=== PATIENT | female | born 1990 | race Hispanic/Latino ===

== ENCOUNTER 2018-02-06 13:20 | Emergency (ER) | payer OTHER ==
[2018-02-06 13:43] LABS: #Lymphocytes 1.8 thou/uL (1.20-3.40); #Monocytes 0.4 thou/uL (0.11-0.59); #Neutrophils 5.7 thou/uL (1.40-6.50); %Basophils 0.2 % (0.0-1.0); %Eosinophils 0.3 % (0.0-10.0); %Lymphocytes 23.1 % (21.0-51.0); %Monocytes 4.6 % (0.0-10.0); %Neutrophils 71.9 % (42.0-75.0); Hemoglobin 12.8 g/dL (12.0-16.0); Mean Corpuscular HGB CONC 33.4 g/dL (32.0-36.0); Mean Corpuscular Hemoglobin 28.2 pg (27.0-31.0); Mean Corpuscular Volume 84.3 fL (78.0-98.0); Mean Platelet Volume 7.8 fL (7.4-10.4); Platelet Count 188 thou/uL (130-400); RBC Distribution Width 12.3 % (11.5-14.5); Red Blood Cell (RBC) Count 4.56 mill/uL (4.20-5.40); White Blood Cell (WBC) Count 7.9 thou/uL (4.8-10.8)
[2018-02-06 13:48] LABS: BHCG - Serum POSITIVE (NEGATIVE); Pregs Control Background? CLEAR/WHITE (CLR/WHITE); Pregs Control Bar Appear? YES (CONTROL BAR)
[2018-02-06 14:41] LABS: Bilirubin Negative (Negative); Blood, Urine Small (Negative); Clarity CLEAR (Clear); Glucose, Urine (Dipstick) Negative (Negative); Leukocyte Negative (Negative); Nitrite Negative (Negative); Protein, Urine (Dipstick) Negative (Neg-Trace); Specific Gravity, Urine 1.015 (1.002-1.036); Urobilinogen 0.2 mg/dL (0.2-1.0)
[2018-02-06 14:43] LABS: Bacteria/HPF None Seen HPF (None Seen); Hyaline Casts/LPF 0-3 HYALINE CAST LPF (0-3 Hyaline); Pathc Cast-AUWi Flag 0.14 (0-2.49); RBC/HPF 0-3 HPF (0-3); Squamous Epithelial 0-3 HPF (0-3); WBC/HPF 0-3 HPF (0-3)
--- NOTE | 2018-02-06 14:54 | ULT ---
TRANSABDOMINAL PELVIC UTLRASOUND: DATE: 02/06/2018. Provided CLINICAL HISTORY: Vaginal bleeding. FINDINGS: Uterus measures about 10 x 5.3 x 8.1 cm and demonstrates an intrauterine gestational sac containing a yolk sac and pole. heart tones of 130 b.p.m. documented. There is a small amount of pa ragestational hemorrhage present. Estimated gestational age by crown-rump length is 6 weeks 5 days. The right and left ovary demonstrate a normal transabdominal sonographic appearance. There is no nanci dence for free pelvic fluid. Color Doppler and spectral analysis of the ovarian waveforms demonstrat es normal flow bilaterally. IMPRESSION: Single live intrauterine gestation 6 weeks 5 days by crown-rump length. A small amount of paragestat ional hemorrhage. POS: MISSY
== END 2018-02-06 15:23 ==
LOC: ERS 13:20
DX: O20.0 Threatened abortion (principal); Z3A.01 Less than 8 weeks gestation of pregnancy
CPT/HCPCS: 36415; 76856; 81003; 81015; 84702; 84703; 85025; 93976

== ENCOUNTER 2018-05-18 09:02 | Emergency (ER) | payer BC, MEDICAID, OTHER ==
--- NOTE | 2018-05-18 10:27 | RAD ---
TWO VIEW CHEST: Indication: Cough, congestion. FINDINGS: There is no consolidation, effusion, or pneumothorax. Cardiac silhouette is normal in size. Osseous s tructures are intact. IMPRESSION: No focal consolidation. POS: H
== END 2018-05-18 11:05 | disposition home or self-care (01) ==
LOC: ERS 09:02
DX: O99.342 Other mental disorders complicating pregnancy, second trimester (principal); J06.9 Acute upper respiratory infection, unspecified; Z3A.21 21 weeks gestation of pregnancy
CPT/HCPCS: 71046; 87804; 94640; J7620

== ENCOUNTER 2018-08-27 01:54 | Day surgery (SDC) | payer BC, MEDICAID ==
[2018-08-27 02:45] VITALS: BP 136/77; TEMP 98.5; BMI 41.3
[2018-08-27] MEDS ORDERED: hydrALAZINE 20 MG/ML VIAL SLOW IVP PRN (02:52)
[2018-08-27] MEDS ORDERED: Butorphanol Tartrate 1 MG/ML VIAL SLOW IVP PRN (02:53)
[2018-08-27] MEDS ORDERED: Promethazine HCl 25 MG/ML VIAL IM/IV PRN (02:53)
--- NOTE | 2018-08-27 02:55 | PDOC.LDHP ---
Labor and Delivery H&P HPI: EGA 36 weeks 4 days, here with CTX CC: CTX Patient of Dr mckeon Time: 0300 28 yo CS x 2 with possible CTX, no LOF, no VB, good FM. review of Systems: complete ROS completed and as per HPI Current gestational age (weeks): 36 (3 days) Due date: 09/27/18 Grav: 3 Para: 2 OB History Details: CS x2 Current complications: none Abnormal US findings: No Current medications: pre- vitamins Previous surgical history: other (CS X 2) Allergies/Adverse Reactions: Allergies Allergy/AdvReac Type Severity Reaction Status Date / Time No Known Allergies Allergy Verified 08/27/18 02:46 - Physical Exam Vital signs reviewed and normal: yes (136/77) General: NAD Heart: RRR Lungs: CTAB Abdomen: gravid Extremeties: no edema - Vaginal Exam cm dilated: 0 Effacement: 25% Station: -1 - Assessment Threatened labor at 36 weeks 4 days, CS x 2, CX closed - Plan Plan: observation in L&D (IVF hydrate and sedate, recheck CX in 3 hrs to see if any progress.)
[2018-08-27] MEDS ORDERED: Lactated Ringer's 1,000 ML IV SCH (03:00)
--- NOTE | 2018-08-27 06:24 | PDOC.EVN ---
Event Note - Event Note Event Note: Patient still closed, but with few CTX. D/W Dr mckeon, he will see her in his office today for follow up. Strip reactive
== END 2018-08-27 06:35 | disposition home or self-care (01) ==
LOC: L&D/OP 01:54
PROVIDERS: ATTEND Family Medicine
DX: O47.03 False labor before 37 completed weeks of gestation, third trimester (principal); Z3A.36 36 weeks gestation of pregnancy
CPT/HCPCS: 96360; 96375; 99283; J0595; J2550

== ENCOUNTER 2018-08-30 15:14 | Observation (INO) | payer BC, OTHER ==
[2018-08-30 16:24] VITALS: BMI 42.7
[2018-08-30 17:21] LABS: #Eosinphils 0.1 thou/uL (0.0-0.7); #Lymphocytes 1.6 thou/uL (1.20-3.40); #Monocytes 0.4 thou/uL (0.11-0.59); #Neutrophils 6.1 thou/uL (1.40-6.50); %Basophils 0.4 % (0.0-1.0); %Eosinophils 0.6 % (0.0-10.0); %Lymphocytes 19.8 % (21.0-51.0); %Monocytes 5.4 % (0.0-10.0); %Neutrophils 73.7 % (42.0-75.0); Hemoglobin 9.8 g/dL (12.0-16.0); Mean Corpuscular HGB CONC 34.3 g/dL (32.0-36.0); Mean Corpuscular Hemoglobin 27.6 pg (27.0-31.0); Mean Corpuscular Volume 80.5 fL (78.0-98.0); Mean Platelet Volume 9.5 fL (7.4-10.4); Platelet Count 108 thou/uL (130-400); Red Blood Cell (RBC) Count 3.53 mill/uL (4.20-5.40); White Blood Cell (WBC) Count 8.2 thou/uL (4.8-10.8)
[2018-08-30 17:29] LABS: ALT (SGPT) 7 U/L (8-55); AST (SGOT) 10 U/L (5-34); Alkaline Phosphatase 97 U/L (40-150); Anion Gap 13 mmol/L (10-20); BUN (Urea Nitrogen) 6 mg/dL (7.0-18.7); Bilirubin, Total 0.2 mg/dL (0.2-1.2); Calc. Creatinine Clearance 207 mL/min (70-130); Calcium 8.7 mg/dL (7.8-10.44); Carbon Dioxide 20 mmol/L (22-29); Chloride 105 mmol/L (98-107); Estimated GFR-MDRD Greater than 90; Globulin 3.2 g/dL (2.4-3.5); Glucose 101 mg/dL (70-105); Potassium 3.3 mmol/L (3.5-5.1); Protein, Total 6.2 g/dL (6.0-8.3); Sodium 135 mmol/L (136-145)
[2018-08-30 17:34] LABS: MDiff Complete? YES; Platelet Morphology Comment Appears Decreased; Polychromasia SLIGHT = 2-3 cells (100X) (0-2/hpf)
[2018-08-30] MEDS ORDERED: Acetaminophen 500 MG TAB PO PRN (18:06)
[2018-08-30] MEDS ORDERED: hydrALAZINE 20 MG/ML VIAL SLOW IVP PRN (18:06)
[2018-08-30] MEDS ORDERED: Promethazine HCl 25 MG/ML VIAL IM PRN (18:06)
[2018-08-30] MEDS ORDERED: Ondansetron PF 4 MG/2 ML Vial IVP PRN (18:06)
--- NOTE | 2018-08-30 18:13 | ULT ---
US Biophysical Profile: 08/30/2018 4:52 PM CLINICAL HISTORY: Nonreactive stress test. COMPARISON: None. FINDINGS: heart rate: 130 bpm. SIDRA: 10.0 cm Biophysical profile: 8 of 8 IMPRESSION: Normal biophysical profile
[2018-08-31 07:03] LABS: Hemoglobin 9.6 g/dL (12.0-16.0); Mean Corpuscular Hemoglobin 27.9 pg (27.0-31.0); Platelet Count 97 thou/uL (130-400); Red Blood Cell (RBC) Count 3.42 mill/uL (4.20-5.40)
[2018-08-31 07:23] LABS: ALT (SGPT) Less than 7 U/L (8-55); AST (SGOT) 9 U/L (5-34); Albumin 2.8 g/dL (3.5-5.0); Alkaline Phosphatase 85 U/L (40-150); Anion Gap 11 mmol/L (10-20); BUN (Urea Nitrogen) 7 mg/dL (7.0-18.7); Bilirubin, Total 0.2 mg/dL (0.2-1.2); Calc. Creatinine Clearance 221 mL/min (70-130); Carbon Dioxide 23 mmol/L (22-29); Chloride 107 mmol/L (98-107); Estimated GFR-MDRD Greater than 90; Glucose 86 mg/dL (70-105); Potassium 3.8 mmol/L (3.5-5.1); Protein, Total 5.8 g/dL (6.0-8.3); Sodium 137 mmol/L (136-145)
[2018-08-31] MEDS: Ferrous Sulfate 325 MG TAB PO SCH ×2 (08:42→18:24)
[2018-08-31 14:54] LABS: PTT 27.8 SEC (22.9-36.1); Prothrombin Time 12.7 SEC (12.0-14.7)
[2018-08-31 14:55] LABS: Hemoglobin 9.6 g/dL (12.0-16.0); Mean Corpuscular HGB CONC 34.2 g/dL (32.0-36.0); Mean Corpuscular Hemoglobin 27.9 pg (27.0-31.0); Mean Corpuscular Volume 81.7 fL (78.0-98.0); Mean Platelet Volume 9.1 fL (7.4-10.4); Platelet Count 100 thou/uL (130-400); RBC Distribution Width 13.9 % (11.5-14.5); Red Blood Cell (RBC) Count 3.45 mill/uL (4.20-5.40); White Blood Cell (WBC) Count 6.5 thou/uL (4.8-10.8)
[2018-08-31 15:46] LABS: Band 5 % (5-11); Eosinophils 1 % (0-10); Lymphocytes 24 % (21-51); MDiff Complete? YES; Monocytes 5 % (0-10); Neutrophil 65 % (42-75); Platelet Morphology Comment Appears Decreased; Polychromasia SLIGHT = 2-3 cells (100X) (0-2/hpf)
[2018-08-31 16:23] LABS: Urine Total Volume 2750 mL (600-1600)
[2018-08-31 17:31] LABS: Protein - 24 Hr 303 mg/24 hr (Less than 300); Protein, Urine 11 mg/dL (1-14)
[2018-09-01 05:18] LABS: Hemoglobin 9.8 g/dL (12.0-16.0); Mean Corpuscular HGB CONC 33.8 g/dL (32.0-36.0); Mean Corpuscular Hemoglobin 27.7 pg (27.0-31.0); Mean Platelet Volume 9.3 fL (7.4-10.4); Platelet Count 107 thou/uL (130-400); RBC Distribution Width 13.9 % (11.5-14.5); Red Blood Cell (RBC) Count 3.55 mill/uL (4.20-5.40); White Blood Cell (WBC) Count 8.3 thou/uL (4.8-10.8)
[2018-09-01] MEDS: Ferrous Sulfate 325 MG TAB PO SCH ×2 (09:34→17:10)
--- NOTE | 2018-09-01 14:01 | ULT ---
BIOPHYSICAL PROFILE: 09/01/18 INDICATIONS: Decreased movement. FINDINGS/IMPRESSION: tone: 2 breathin movement: 2 Amniotic fluid: 2 Total score: 8/8. Position: Vertex. Placenta: Anterior. SIDRA: 15.6 cm. heart rate: 149 beats per minute. POS: OFF
[2018-09-01 17:49] VITALS: BP 127/78; TEMP 98.7
== END 2018-09-01 19:20 | disposition home health service (06) ==
LOC: L&D/OP 15:14 → L&D 18:24 → 3SW 20:27
PROVIDERS: ADMIT Family Medicine; ATTEND Family Medicine
DX: O99.89 Other specified diseases and conditions complicating pregnancy, childbirth and the puerperium (principal); R03.0 Elevated blood-pressure reading, without diagnosis of hypertension; O99.213 Obesity complicating pregnancy, third trimester; E66.9 Obesity, unspecified; Z3A.36 36 weeks gestation of pregnancy; Z79.899 Other long term (current) drug therapy
CPT/HCPCS: 36415; 59025; 76819; 80053; 81003; 82570; 84156; 85025; 85027; 85060; 85384; 85610; 85730; G0378

== ENCOUNTER 2018-09-14 05:41 | Inpatient (IN) | payer BC, OTHER ==
[2018-09-14] MEDS ORDERED: hydrALAZINE 20 MG/ML VIAL SLOW IVP PRN ×2 (05:53→10:02)
[2018-09-14] MEDS ORDERED: CEFAZOLIN 2 GM in Premix Bag 1 BAG IVPB SCH (05:53)
[2018-09-14] MEDS ORDERED: Bicitra 30 ML UDCUP PO SCH (05:53)
[2018-09-14] MEDS ORDERED: Ondansetron PF 4 MG/2 ML Vial IVP PRN ×3 (05:53→10:02)
[2018-09-14] MEDS ORDERED: Promethazine HCl 25 MG/ML VIAL IM PRN ×3 (05:53→10:02)
[2018-09-14 06:14] VITALS: BMI 41.8
[2018-09-14] MEDS: Lactated Ringer's 1,000 ML IV SCH ×2 (06:22→21:37)
[2018-09-14 06:23] LABS: Hemoglobin 11.2 g/dL (12.0-16.0); Mean Corpuscular HGB CONC 33.5 g/dL (32.0-36.0); Mean Corpuscular Hemoglobin 27.1 pg (27.0-31.0); Mean Platelet Volume 9.7 fL (7.4-10.4); Platelet Count 135 thou/uL (130-400); RBC Distribution Width 15.5 % (11.5-14.5); Red Blood Cell (RBC) Count 4.13 mill/uL (4.20-5.40); White Blood Cell (WBC) Count 10.6 thou/uL (4.8-10.8)
[2018-09-14 07:03] LABS: HBSAg Index 0.28 S/CO (0-0.99); Hep B Surf Ag Non-Reactive S/CO (NonReactive)
[2018-09-14 07:03] LABS: Syphilis Antibody Nonreactive (Nonreactive); Syphilis Antibody Index 0.05 S/CO (<1.00 Non-Reactive)
[2018-09-14] MEDS ORDERED: MORPHINE 5 MG/10 ML PF VIAL ONE (07:03)
[2018-09-14] MEDS ORDERED: Fentanyl 100 MCG/2 ML VIAL ONE (07:03)
[2018-09-14] MEDS ORDERED: Phenylephrine HCL 10 MG/ML VIAL ONE (07:04)
[2018-09-14] MEDS ORDERED: ePHEDrine/0.9% NaCl/PF SYRINGE 50 mg/10 ml ONE (07:04)
[2018-09-14] MEDS ORDERED: Ondansetron PF 4 MG/2 ML Vial ONE ×2 (07:04→10:43)
[2018-09-14] MEDS ORDERED: Ketorolac Tromethamine 30 MG/ML VIAL ONE ×2 (07:04→10:43)
[2018-09-14] MEDS ORDERED: Oxytocin 10 UNITS/ML VIAL ONE (07:04)
[2018-09-14] MEDS ORDERED: Dexamethasone 4 mg/ml Vial ONE (07:05)
[2018-09-14] MEDS ORDERED: L&D-Morphine 4 MG/ML VIAL SLOW IVP PRN (07:59)
[2018-09-14] MEDS ORDERED: Naloxone HCl 0.4 mg/ml Vial IV PRN (07:59)
[2018-09-14] MEDS ORDERED: Ondansetron HCl/PF 4 MG/2 ML Vial IVP PRN (07:59)
[2018-09-14] MEDS ORDERED: Naloxone HCl 0.4 mg/ml Vial IVP PRN ×2 (07:59)
[2018-09-14] MEDS ORDERED: Meperidine HCl/PF 25 MG/ML VIAL SLOW IVP PRN (07:59)
[2018-09-14] MEDS ORDERED: Promethazine HCl 25 MG SUPP PR PRN (07:59)
[2018-09-14] MEDS ORDERED: HYDROmorphone 2 MG/ML VIAL SLOW IVP PRN (07:59)
[2018-09-14] MEDS ORDERED: diphenhydrAMINE 50 MG/ML VIAL IVP PRN (07:59)
[2018-09-14] MEDS ORDERED: Communication Order-Pharmacy FS SCH (08:00)
[2018-09-14] MEDS ORDERED: NS / Oxytocin 40 units/1000ml 1,000 ML ONE (09:16)
[2018-09-14] MEDS ORDERED: HYDROcodone/Acetaminophen 5/325 mg Tablet PO PRN ×2 (10:02)
[2018-09-14] MEDS ORDERED: Adacel (T-DAP) 0.5 ML SYRINGE IM ONE (10:02)
[2018-09-14] MEDS ORDERED: Meperidine HCl/PF 25 MG/ML VIAL IM PRN (10:02)
[2018-09-14] MEDS ORDERED: NS / Oxytocin 40 units/1000ml 1,000 ML IV SCH (10:02)
[2018-09-14] MEDS ORDERED: diphenhydrAMINE 25 MG CAP PO PRN (10:02)
[2018-09-14] MEDS ORDERED: Bisacodyl 10 MG SUPP PR PRN (10:02)
[2018-09-14] MEDS ORDERED: ePHEDrine 50 MG/ML VIAL ONE (10:43)
[2018-09-14] MEDS ORDERED: Dexamethasone 20 MG/5 ML VIAL ONE (10:43)
[2018-09-14] MEDS ORDERED: PHENYLEPHRINE-NS 100 MCG/ML 10 ML SYRINGE ONE (10:43)
[2018-09-14] MEDS: Prenatal Vitamin 1 TAB PO SCH (12:19)
[2018-09-14] MEDS: Ibuprofen 800 MG TAB PO SCH ×2 (14:07→21:39)
[2018-09-14] MEDS: Ketorolac Tromethamine 30 MG/ML VIAL IVP PRN (15:55)
[2018-09-14] MEDS: Docusate Calcium (SURFAK) 240 MG CAP PO SCH (21:37)
[2018-09-14] MEDS: Ferrous Sulfate 325 MG TAB PO SCH (21:38)
[2018-09-14] MEDS: Simethicone Chewable 80 MG TAB PO PRN (21:38)
--- NOTE | 2018-09-14 23:32 | DN ---
DATE OF PROCEDURE: 09/14/2018 RESIDENT: Justino Bell MD ATTENDING: Eliot Reyes MD PROCEDURE: Repeat low transverse section. PREOPERATIVE DIAGNOSES: 1. Term intrauterine . 2. Previous -section. 3. Preeclampsia. POSTOPERATIVE DIAGNOSES: 1. Term intrauterine . 2. Previous -section. 3. Preeclampsia. ANESTHESIA: Spinal. INDICATIONS: The patient is a 28-year-old G3, P2 female at 38 and 1 weeks gestation who presents for repeat scheduled due to preeclampsia. PROCEDURE IN DETAIL: The risks, benefits, alternatives explained to the patient, gave informed consent. Preoperative antibiotics included cefazolin 2 g IV. The patient was taken to the operating room and spinal anesthesia was initiated, placed in the supine position with a left tilt, and prepped and draped in the usual sterile fashion. Pfannenstiel incision was made with scalpel and carried down to the level of the fascia, which was sharply nicked. The fascial cut was extended bilaterally with Rubin scissors. Inferior and superior edges of the cut fascial edges were elevated with Neno clamps and the underlying rectus muscles were sharply and bluntly dissected free. Recti were divided digitally, retracted manually. The peritoneum was entered bluntly and retracted manually. Bladder blade was placed. A low transverse score was made with the scalpel. The uterus was entered in the midline with a scalpel. Clear fluid was seen. The hysterotomy was extended manually. Infant was noted to be vertex and we had to use vacuum delivered and delivered by fundal pressure. Mouth and nares were bulb suctioned. Cord clamped and cut and grossly normal female infant was handed to waiting nurse. Cord blood was obtained. Placenta was manually extracted, found to be intact with three vessel cord and discarded uses. Uterus was externalized and the endometrium was curetted with a dry lap. Bladder blade was replaced and the uterus was closed with a running locking 0 Vicryl suture, had to place one [id number] Vicryl suture as well. Following this, hemostasis is noted. Abdomen is irrigated with saline and suctioned free of clots. Uterus was internalized. The hysterotomy was again noted to be hemostatic. The peritoneum was closed with 3-0 Vicryl in a running nonlocking fashion. The fascia was closed with a running nonlocking 0 PDS. Subcu tissue was irrigated and was closed with 3-0 Vicryl in three interrupted stitches. Skin was approximated with mari and pressure dressing was placed. All counts were correct. The patient tolerated the procedure well and was taken to recovery room in stable condition. ESTIMATED BLOOD LOSS: Was still pending at the time of dictation. COMPLICATIONS: None. SPECIMENS: Cord blood sent to laboratory for blood type. FINDINGS: Grossly normal female infant with Apgars of 8 and 9. Grossly normal placenta with three vessel cord discarded. DRAINS: Bear to gravity draining clear urine. Job ID: [id number]
[2018-09-15] MEDS: Ketorolac Tromethamine 30 MG/ML VIAL IVP PRN (02:44)
[2018-09-15] MEDS: Ibuprofen 800 MG TAB PO SCH ×3 (03:07→21:10)
[2018-09-15 06:03] LABS: Hemoglobin 9.4 g/dL (12.0-16.0); Mean Corpuscular HGB CONC 32.8 g/dL (32.0-36.0); Mean Corpuscular Hemoglobin 27.2 pg (27.0-31.0); Mean Platelet Volume 9.6 fL (7.4-10.4); Platelet Count 112 thou/uL (130-400); RBC Distribution Width 15.7 % (11.5-14.5); Red Blood Cell (RBC) Count 3.46 mill/uL (4.20-5.40); White Blood Cell (WBC) Count 11.3 thou/uL (4.8-10.8)
[2018-09-15] MEDS: Docusate Calcium (SURFAK) 240 MG CAP PO SCH ×2 (08:19→21:10)
[2018-09-15] MEDS: Prenatal Vitamin 1 TAB PO SCH (08:19)
[2018-09-15] MEDS: Ferrous Sulfate 325 MG TAB PO SCH ×2 (08:19→21:10)
[2018-09-15] MEDS: Simethicone Chewable 80 MG TAB PO PRN ×2 (09:40→14:54)
[2018-09-16] MEDS: Ibuprofen 800 MG TAB PO SCH ×3 (05:13→20:58)
[2018-09-16] MEDS: Prenatal Vitamin 1 TAB PO SCH (09:13)
[2018-09-16] MEDS: Ferrous Sulfate 325 MG TAB PO SCH ×2 (09:13→20:58)
[2018-09-16] MEDS: Docusate Calcium (SURFAK) 240 MG CAP PO SCH ×2 (09:13→20:58)
[2018-09-17] MEDS: Ibuprofen 800 MG TAB PO SCH ×2 (04:41→12:55)
[2018-09-17 08:10] VITALS: BP 122/75; TEMP 99.1
[2018-09-17] MEDS: Docusate Calcium (SURFAK) 240 MG CAP PO SCH (08:50)
[2018-09-17] MEDS: Prenatal Vitamin 1 TAB PO SCH (08:50)
[2018-09-17] MEDS: Ferrous Sulfate 325 MG TAB PO SCH (08:50)
== END 2018-09-17 18:00 | disposition home or self-care (01) | DRG 788 ==
LOC: L&D 05:41 → 3SW 10:59
PROVIDERS: ADMIT Family Medicine; ATTEND Family Medicine
PROC: 10D00Z1 Extraction of Products of Conception, Low, Open Approach (ICD-10-PCS; principal; 2018-09-14)
DX: O34.211 Maternal care for low transverse scar from previous cesarean delivery (principal); O14.94 Unspecified pre-eclampsia, complicating childbirth; Z3A.38 38 weeks gestation of pregnancy; Z37.0 Single live birth
CPT/HCPCS: 36415; 51702; 85027; 86780; 86850; 86900; 86901; 87340; J0690; J1100; J1885; J2274; J2370; J2405; J2590; J3010; J3490

== ENCOUNTER 2021-07-09 06:49 | Outpatient (CLI) | payer BC | END 2021-07-09 06:50 | disposition home or self-care (01) | LOC: BICULT 06:49 | PROVIDERS: ATTEND Nurse Practitioner Women's Health | DX: Z32.01 Encounter for pregnancy test, result positive (principal); Z97.5 Presence of (intrauterine) contraceptive device | CPT/HCPCS: 76856 ==